=== PATIENT | male | born 1975 | race Caucasian/White ===

== ENCOUNTER → 2019-07-15 | Outpatient (CLI) | payer BC ==
[2019-07-15 15:31] LABS: Basophils % (A) 0 %; Eosinophils % (A) 1 %; HGB 14.5 gm/dL (13.0-17.5); Lymphocytes % (A) 20 %; MCH 30.9 pg (25.0-35.0); MCHC 35.4 g/dL (31.0-37.0); MCV 87.4 fL (80.0-100.0); Mean Platelet Volume 6.9; Monocytes # (A) 0.2 k/uL (0-1.0); Monocytes % (A) 4 %; Neutrophils # (A) 3.7 k/uL (1.3-7.7); Neutrophils % (A) 74 %; Platelet Count 220 k/uL (150-450)
[2019-07-15 18:45] LABS: African American GFR (CKD) 120.8 (60.0-200.0); Albumin 4.5 g/dL (3.80-4.90); Anion Gap 3.4 mmol/L (4.00-12.00); BUN/Creat Ratio 22.22 Ratio (12.00-20.00); Calcium 8.9 mg/dL (8.7-10.3); Carbon Dioxide 28.6 mmol/L (21.6-31.8); Globulin 1.5 g/dL (1.6-3.3); Non-African American GFR(CKD) 104.2 (60.0-200.0); Potassium 4.2 mmol/L (3.5-5.5); Total Bilirubin 0.6 mg/dL (0.3-1.2)
[2019-07-15 18:52] LABS: T4, Free (Free Thyroxine) 1.2 ng/dL (0.80-1.80)
== END | disposition home or self-care (01) ==
LOC: LABPAT 14:15
PROVIDERS: ATTEND Family Medicine
DX: Z01.812 Encounter for preprocedural laboratory examination (principal)
CPT/HCPCS: 36415; 80053; 84439; 84443; 85025; 93005

== ENCOUNTER → 2019-07-30 | Outpatient (CLI) | payer BC ==
--- NOTE | 2019-07-30 10:41 | NM ---
EXAMINATION TYPE: NM stress cardiolite complete DATE OF EXAM: 07/30/2019 COMPARISON: 11/05/2010 HISTORY: Chest pain TECHNIQUE: After the intravenous administration of 10.16 mCi Tc 99m Sestamibi - Rest images obtained 75 minutes post injection. The patient exercised using a BRANDON protocol and 1 minute prior to peak exercise was injected with 26.5 mCi Tc 99m Sestamibi - Stress images obtained 15 minutes post inject ion. FINDINGS: Targeted heart rate was achieved during performance of the study. Review of stress and rest SPECT christi ges demonstrates no reduced uptake involving the inferior wall the myocardium which is seen in both s tress and rest images.. Gated analysis shows reduced wall motion with an estimated left ventricular ejection fraction of 45 %. IMPRESSION: 1. Predominantly fixed defect involving the inferior myocardium. Although a tiny area of adjacent str ess-induced reversible ischemia cannot be entirely excluded no definite sizable area of reversible is chemia identified. Correlate clinically. 2. Ejection fraction of 45%
--- NOTE | 2019-07-30 14:18 | EST ---
EXERCISE STRESS AGE: 43 SEX: M HT: 74" WT: 200 PROTOCOL: Cardiolite Iván Stress Test STAGE: 5 DURATION OF EXERCISE: 14:30 HEART RATE REST: 65 BLOOD PRESSURE REST: 126/74 MAXIMUM HEART RATE ACHIEVED: 150 MAXIMUM BLOOD PRESSURE: 189/74 85% MPHR: 150 100% MPHR: 177 METS: 14.3 INDICATIONS: Preoperative. CLINICAL INFORMATION: A stress Cardiolite study was performed. Patient was exercised for a total period of 14 minutes and 30 seconds, a peak heart rate of 150 was achieved. Maximum blood pressure of 188/74 mmHg was noted. Resting EKG shows normal sinus rhythm with normal MS interval and QRS duration and normal ST-T waves. No ST-segment depression suggestive of ischemia is noted. Patient did not complain of any chest pain during the test. FINAL IMPRESSION: 1. This stress electrocardiogram is not suggestive of ischemia. 2. Patient's exercise tolerance is normal. 3. Patient did not complain of any chest pain during the test. MMODL / IJN: [id number] /
== END | disposition home or self-care (01) ==
LOC: RADNMMAIN 07:52
PROVIDERS: ATTEND Family Medicine
DX: I25.89 Other forms of chronic ischemic heart disease (principal); I51.89 Other ill-defined heart diseases
CPT/HCPCS: 93017; 78452; A9500

== ENCOUNTER 2019-08-01 11:53 | Observation (INO) | payer BC ==
[2019-08-01] MEDS ORDERED: ASPIRIN 81 MG PO STA (12:05)
[2019-08-01] MEDS ORDERED: NITROGLYCERIN OINT 1 INCH/GM PACKET TOPICAL STA (12:05)
--- NOTE | 2019-08-01 12:11 | ED ---
General Adult HPI - General Chief complaint: Chest Pain Stated complaint: Chest pain Time Seen by Provider: 08/01/19 11:57 Source: patient, RN notes reviewed, old records reviewed Mode of arrival: ambulatory Limitations: no limitations - History of Present Illness Initial comments: This is a 43-year-old male who presents emergency Department after experiencing chest pain since Monday when he got news about a stress test that was abnormal. Patient states he also feels as though a little bit more difficult to breathing normal. Patient also states he had some episodes where he felt lightheaded. However he states he had 1 episode after that and that made him more concerned. Patient states currently he has no radiation of the pain. Patient denies any palpitations per patient denies any recent fever chills or cough. Patient denies any swelling legs or calf tenderness. Patient states he exercises daily and has no chest pain or difficulty breathing when he does not. He was at Dr. Schwab's office when the chest pain returned so Dr. Vaughn sentiment emergency department to be admitted and to follow-up with Dr. Grant. Patient states she's feeling little better now but is in the emergency department. Patient states he believes some of this could be due to anxiety because the bad news. - Related Data Home Medications Medication Instructions Recorded Confirmed Gabapentin [Neurontin] 300 mg PO TID 08/01/19 08/01/19 Allergies Allergy/AdvReac Type Severity Reaction Status Date / Time No Known Allergies Allergy Verified 08/01/19 12:43 Review of Systems ROS Statement: Those systems with pertinent positive or pertinent negative responses have been documented in the HPI. ROS Other: All systems not noted in ROS Statement are negative. Past Medical History Past Medical History: Musculoskeletal Disorder Additional Past Medical History / Comment(s): BACK PAIN D/T INJURY History of Any Multi-Drug Resistant Organisms: None Reported Past Surgical History: Orthopedic Surgery Additional Past Surgical History / Comment(s): SURG ON NERVE LT GREAT TOE; LT ELBOW SURG CHILD. Past Anesthesia/Blood Transfusion Reactions: No Reported Reaction Past Psychological History: No Psychological Hx Reported Smoking Status: Never smoker Past Alcohol Use History: None Reported Past Drug Use History: None Reported General Exam - General Exam Comments Initial Comments: GENERAL: Patient is well-developed and well-nourished. Patient is nontoxic and well- hydrated and is in mild distress. ENT: Neck is soft and supple. No significant lymphadenopathy is noted. Oropharynx i s clear. Moist mucous membranes. Neck has full range of motion without eliciting any pain. EYES: The sclera were anicteric and conjunctiva were pink and moist. Extraocular movements were intact and pupils were equal round and reactive to light. Eyelids were unremarkable. PULMONARY: Unlabored respirations. Good breath sounds bilaterally. No audible rales rhonchi or wheezing was noted. CARDIOVASCULAR: There is a regular rate and rhythm without any murmurs gallops or rubs. ABDOMEN: Soft and nontender with normal bowel sounds. No palpable organomegaly was noted. There is no palpable pulsatile mass. SKIN: Skin is clear with no lesions or rashes and otherwise unremarkable. NEUROLOGIC: Patient is alert and oriented x3. Cranial nerves II through XII are grossly intact. Motor and sensory are also intact. Normal speech, volume and content. Symmetrical smile. MUSCULOSKELETAL: Normal extremities with adequate strength and full range of motion. No lower extremity swelling or edema. No calf tenderness. LYMPHATICS: No significant lymphadenopathy is noted PSYCHIATRIC: Patient is mildly anxious Limitations: no limitations Course Vital Signs 08/01/19 08/01/19 08/01/19 11:57 12:13 13:29 Temperature 98 F Pulse Rate 73 70 69 Respiratory 16 20 18 Rate Blood Pressure 134/87 137/90 118/72 O2 Sat by Pulse 99 99 99 Oximetry Medical Decision Making - Medical Decision Making EKG shows normal sinus rhythm at 61 bpm TN interval is 188 QRS 104 Q-T intervals 380 QTC is 390. Patient's EKG shows no ST segment elevation or depression. Chest x-ray shows no acute abnormality. I started the patient on heparin I gave the patient has been Nitropaste. I consulted cardiology they came down to see the patient in the emergency depa rtment. I spoke with Dr. Lora he agreed to admit the patient admitted the patient. - Lab Data Result diagrams: 08/01/19 12:14 08/01/19 12:14 Lab Results 08/01/19 08/01/19 08/01/19 Range/Units 12:14 12:14 12:14 WBC 4.9 (3.8-10.6) k/uL RBC 4.93 (4.30-5.90) m/uL Hgb 15.3 (13.0-17.5) gm/dL Hct 43.1 (39.0-53.0) % MCV 87.5 (80.0-100.0) fL MCH 31.1 (25.0-35.0) pg MCHC 35.5 (31.0-37.0) g/dL RDW 12.1 (11.5-15.5) % Plt Count 207 (150-450) k/uL Neutrophils % 74 % Lymphocytes % 19 % Monocytes % 5 % Eosinophils % 1 % Basophils % 0 % Neutrophils # 3.6 (1.3-7.7) k/uL Lymphocytes # 0.9 L (1.0-4.8) k/uL Monocytes # 0.2 (0-1.0) k/uL Eosinophils # 0.1 (0-0.7) k/uL Basophils # 0.0 (0-0.2) k/uL PT 10.3 (9.0-12.0) sec INR 1.0 (<1.2) APTT 26.7 (22.0-30.0) sec Sodium 138 (137-145) mmol/L Potassium 4.3 (3.5-5.1) mmol/L Chloride 102 (98-107) mmol/L Carbon Dioxide 28 (22-30) mmol/L Anion Gap 8 mmol/L BUN 15 (9-20) mg/dL Creatinine 0.84 (0.66-1.25) mg/dL Est GFR (CKD-EPI)AfAm >90 (>60 ml/min/1.73 sqM) Est GFR (CKD-EPI)NonAf >90 (>60 ml/min/1.73 sqM) Glucose 95 (74-99) mg/dL Calcium 9.7 (8.4-10.2) mg/dL Magnesium 1.9 (1.6-2.3) mg/dL Total Bilirubin 1.0 (0.2-1.3) mg/dL AST 28 (17-59) U/L ALT 25 (4-49) U/L Alkaline Phosphatase 59 (38-126) U/L Troponin I (0.000-0.034) ng/mL Total Protein 7.3 (6.3-8.2) g/dL Albumin 4.6 (3.5-5.0) g/dL 08/01/19 Range/Units 12:14 WBC (3.8-10.6) k/uL RBC (4.30-5.90) m/uL Hgb (13.0-17.5) gm/dL Hct (39.0-53.0) % MCV (80.0-100.0) fL MCH (25.0-35.0) pg MCHC (31.0-37.0) g/dL RDW (11.5-15.5) % Plt Count (150-450) k/uL Neutrophils % % Lymphocytes % % Monocytes % % Eosinophils % % Basophils % % Neutrophils # (1.3-7.7) k/uL Lymphocytes # (1.0-4.8) k/uL Monocytes # (0-1.0) k/uL Eosinophils # (0-0.7) k/uL Basophils # (0-0.2) k/uL PT (9.0-12.0) sec INR (<1.2) APTT (22.0-30.0) sec Sodium (137-145) mmol/L Potassium (3.5-5.1) mmol/L Chloride (98-107) mmol/L Carbon Dioxide (22-30) mmol/L Anion Gap mmol/L BUN (9-20) mg/dL Creatinine (0.66-1.25) mg/dL Est GFR (CKD-EPI)AfAm (>60 ml/min/1.73 sqM) Est GFR (CKD-EPI)NonAf (>60 ml/min/1.73 sqM) Glucose (74-99) mg/dL Calcium (8.4-10.2) mg/dL Magnesium (1.6-2.3) mg/dL Total Bilirubin (0.2-1.3) mg/dL AST (17-59) U/L ALT (4-49) U/L Alkaline Phosphatase (38-126) U/L Troponin I <0.012 (0.000-0.034) ng/mL Total Protein (6.3-8.2) g/dL Albumin (3.5-5.0) g/dL Critical Care Time Critical Care Time: Yes Total Critical Care Time: 35 Disposition Clinical Impression: Unstable angina pectoris Disposition: ADMITTED IP TO THIS HOSP Referrals: Alejandro Lora Jr, DO [Primary Care Provider] - 1-2 days Time of Disposition: 13:57
--- NOTE | 2019-08-01 12:39 | XR ---
EXAMINATION TYPE: XR chest 2V DATE OF EXAM: 08/01/2019 COMPARISON: 04/04/2014 HISTORY: Chest pain and weakness TECHNIQUE: Frontal and lateral views of the chest are obtained. FINDINGS: There is no focal air space opacity, pleural effusion, or pneumothorax seen. Benign right lateral upper lung granuloma is noted. Morphine left upper lobe pulmonary nodule overlying the poste rior fifth rib is unchanged from 2014 and therefore also benign. The cardiac silhouette size is withi n normal limits. The osseous structures are intact. IMPRESSION: No acute cardiopulmonary process.
[2019-08-01 12:45] LABS: ALT 25 U/L (4-49); AST 28 U/L (17-59); African American GFR (CKD) >90 (>60 ml/min/1.73 sqM); Albumin 4.6 g/dL (3.5-5.0); Alkaline Phosphatase 59 U/L (38-126); Anion Gap 8 mmol/L; Blood Urea Nitrogen 15 mg/dL (9-20); Calcium 9.7 mg/dL (8.4-10.2); Carbon Dioxide 28 mmol/L (22-30); Chloride 102 mmol/L (98-107); Glucose 95 mg/dL (74-99); Magnesium 1.9 mg/dL (1.6-2.3); Non-African American GFR(CKD) >90 (>60 ml/min/1.73 sqM); Potassium 4.3 mmol/L (3.5-5.1); Sodium 138 mmol/L (137-145); Total Protein 7.3 g/dL (6.3-8.2)
[2019-08-01 12:48] LABS: Basophils % (A) 0 %; Eosinophils # (A) 0.1 k/uL (0-0.7); Eosinophils % (A) 1 %; HCT 43.1 % (39.0-53.0); HGB 15.3 gm/dL (13.0-17.5); Lymphocytes # (A) 0.9 k/uL (1.0-4.8); Lymphocytes % (A) 19 %; MCH 31.1 pg (25.0-35.0); MCHC 35.5 g/dL (31.0-37.0); MCV 87.5 fL (80.0-100.0); Mean Platelet Volume 6.7; Monocytes # (A) 0.2 k/uL (0-1.0); Monocytes % (A) 5 %; Neutrophils # (A) 3.6 k/uL (1.3-7.7); Neutrophils % (A) 74 %; Platelet Count 207 k/uL (150-450); RBC 4.93 m/uL (4.30-5.90); RDW 12.1 % (11.5-15.5); WBC 4.9 k/uL (3.8-10.6)
[2019-08-01 12:58] LABS: Partial Thromboplastin Time 26.7 sec (22.0-30.0); Prothrombin Time 10.3 sec (9.0-12.0)
[2019-08-01] MEDS ORDERED: HEPARIN SODIUM,PORCINE 5,000 UNIT/ML 1 ML VIAL IV ONE (13:55)
[2019-08-01] MEDS: HEPARIN SOD,PORK IN 0.45% NACL 25,000 UNIT in 0.45% NACL 1 250ML.BAG IV SCH (14:08)
[2019-08-01] MEDS ORDERED: NITROGLYCERIN SL TABS 0.4 MG TAB SUBLINGUAL PRN ×2 (14:28→14:48)
--- NOTE | 2019-08-01 14:34 | P.CRDCN ---
History of Present Illness Consult date: 08/01/19 Requesting physician: Alejandro Lora Jr Consult reason: chest pain Chief complaint: Chest pain History of present illness: This is a 43-year-old gentleman with no prior documented history of hypertension, no diabetes, no hyperlipidemia, he is a nonsmoker, rarely drinks alcohol. He does state that he occasionally drinks energy drinks. He works out, with the cardiovascular workout every morning for approximately 45 minutes, states that he feels very well when he does that. He does take one medication at home which includes Neurontin 300 mg one tablet by mouth 3 times a day which she takes for numbness and tingling in his back. Patient was scheduled to undergo knee surgery, underwent a stress test prior to that which showed evidence of a fixed defect and possible reversible defect, therefore he was set up to follow with Dr. Grant in the office. He had an appointment with him today actually at 1:15. Patient states that since he found out that his stress test was abnormal, he's been having episodes of a discomfort in his chest, and a very small area, states that he also gets episodes where he feels lightheaded. He has no overt chest pressure, he does get tightness intermittently, he feels as though his symptoms may be related to anxiety, seems to happen more when he thinks about his stress test being abnormal. He was in Dr. Lora's office today, and again had some of the symptoms and was referred to come to the emergency room. His EKG on presentation here showed a normal sinus rhythm with no acute changes. Chest x-ray does not show any acute cardiopulmonary process. I pressure 118/70 with a heart rate in the 60s, 99% on room air. White blood cell count 4.9, hemoglobin 15.3, platelet count 207. Sodium 138, potassium 4.3, BUN 15, creatinine 0.8, magnesium 1.9. Troponin 0.012. Past Medical History Past Medical History: Musculoskeletal Disorder Additional Past Medical History / Comment(s): BACK PAIN D/T INJURY History of Any Multi-Drug Resistant Organisms: None Reported Past Surgical History: Orthopedic Surgery Additional Past Surgical History / Comment(s): SURG ON NERVE LT GREAT TOE; LT ELBOW SURG CHILD. Past Anesthesia/Blood Transfusion Reactions: No Reported Reaction Past Psychological History: No Psychological Hx Reported Smoking Status: Never smoker Past Alcohol Use History: None Reported Past Drug Use History: None Reported Medications and Allergies Home Medications Medication Instructions Recorded Confirmed Type Gabapentin [Neurontin] 300 mg PO TID 08/01/19 08/01/19 History Allergies Allergy/AdvReac Type Severity Reaction Status Date / Time No Known Allergies Allergy Verified 08/01/19 12:43 Physical Exam Vitals: Vital Signs Temp Pulse Resp BP Pulse Ox 08/01/19 13:29 69 18 118/72 99 08/01/19 12:13 70 20 137/90 99 08/01/19 11:57 98 F 73 16 134/87 99 Intake and Output 07/31/19 08/01/19 08/01/19 22:59 06:59 14:59 Other: Weight 97.522 kg PHYSICAL EXAMINATION: GENERAL: 43-year-old gentleman in no acute distress at the time of my examination HEENT: Head is atraumatic, normocephalic. Pupils equal, round. Sclera anicteric. Conjunctiva are clear. Mucous membranes of the mouth are moist. Neck is supple. There is no elevated jugular venous pressure. No carotid bruit is heard. HEART EXAMINATION: Heart S1, S2 normal. No murmur or gallop heard. CHEST EXAMINATION: Lungs are clear to auscultation and precussion. No chest wall tenderness is noted on palpation or with deep breathing. ABDOMEN: Soft, nontender. Bowel sounds are heard. No organomegaly noted. EXTREMITIES: 2+ peripheral pulses with no evidence of peripheral edema and no calf tenderness noted. NEUROLOGIC patient is awake, alert and oriented 3 . . Results 08/01/19 12:14 08/01/19 12:14 Cardiac Enzymes 08/01/19 08/01/19 Range/Units 12:14 12:14 AST 28 (17-59) U/L Troponin I <0.012 (0.000-0.034) ng/mL Coagulation 08/01/19 Range/Units 12:14 PT 10.3 (9.0-12.0) sec APTT 26.7 (22.0-30.0) sec CBC 08/01/19 Range/Units 12:14 WBC 4.9 (3.8-10.6) k/uL RBC 4.93 (4.30-5.90) m/uL Hgb 15.3 (13.0-17.5) gm/dL Hct 43.1 (39.0-53.0) % Plt Count 207 (150-450) k/uL Comprehensive Metabolic Panel 08/01/19 Range/Units 12:14 Sodium 138 (137-145) mmol/L Potassium 4.3 (3.5-5.1) mmol/L Chloride 102 (98-107) mmol/L Carbon Dioxide 28 (22-30) mmol/L BUN 15 (9-20) mg/dL Creatinine 0.84 (0.66-1.25) mg/dL Glucose 95 (74-99) mg/dL Calcium 9.7 (8.4-10.2) mg/dL AST 28 (17-59) U/L ALT 25 (4-49) U/L Alkaline Phosphatase 59 (38-126) U/L Total Protein 7.3 (6.3-8.2) g/dL Albumin 4.6 (3.5-5.0) g/dL Current Medications Generic Name Dose Route Start Last Admin Trade Name Freq PRN Reason Stop Dose Admin Heparin Sodium/Sodium Chloride 250 mls @ 10.006 mls/hr 08/01/19 14:00 14:08 25,000 unit/ Sodium Chloride IV 10.26 units/kg/hr .Q24H TAMMY 10.006 mls/hr Administration Protocol 10.26 UNITS/KG/HR Intake and Output 07/31/19 08/01/19 08/01/19 22:59 06:59 14:59 Other: Weight 97.522 kg Patient Weight 08/02/19 06:59 Weight 97.522 kg 08/01/19 12:14 08/01/19 12:14 EKG Interpretations (text) EKG shows a normal sinus rhythm with no acute changes. Assessment and Plan Plan: Assessment and plan #1 chest pain, with some atypical features for acute coronary syndrome. Associated symptoms of lightheadedness. Initial troponin negative. EKG shows normal sinus rhythm with no acute changes. #2 recent stress test revealed predominantly fixed defect involving the inferior myocardium. Tiny area of adjacent stress-induced reversible ischemia cannot be entirely excluded, no definite sizable area of reversible ischemia identified. Ejection fraction 45%. #3 lumbar disc diseas3 #4 upcoming knee surgery Plan We will obtain an echocardiogram with Doppler study. Patient has also been initiated on IV heparin, his symptoms are very atypical in nature, but he is quite concerned about the abnormality found on the stress test. Dr. Flor Chua will come and evaluate the patient and further recommendations will be made. DNP note has been reviewed, I agree with a documented findings and plan of care. Patient was seen and examined.
[2019-08-01] MEDS ORDERED: METOPROLOL TARTRATE 12.5 MG TAB PO STA (14:47)
[2019-08-01] MEDS ORDERED: ASPIRIN 325 MG TAB PO STA (14:48)
[2019-08-01] MEDS ORDERED: ATORVASTATIN 80 MG TAB PO STA (14:48)
[2019-08-01] MEDS ORDERED: SODIUM CHLORIDE 0.9% 1,000 ML in EMPTY BAG 1 BAG IV ONE (14:48)
[2019-08-01] MEDS ORDERED: ALPRAZolam 0.25 MG TAB PO PRN (14:48)
[2019-08-01] MEDS ORDERED: ALPRAZolam 0.5 MG TAB PO PRN (14:48)
[2019-08-01] MEDS ORDERED: NITROGLYCERIN OINT 1 INCH/GM PACKET TOPICAL SCH (18:00)
[2019-08-01] MEDS ORDERED: HEPARIN SODIUM,PORCINE 5,000 UNIT/ML 1 ML VIAL IV PRN (20:39)
[2019-08-01] MEDS ORDERED: ACETAMINOPHEN TAB 325 MG TAB PO STA (21:56)
[2019-08-01] MEDS: GABAPENTIN 300 MG CAP PO SCH (21:59)
--- NOTE | 2019-08-01 22:09 | CONS ---
CONSULTATION Mr. Lewis was seen by me in the emergency room. This is a very active gentleman who works out at high intensity for 45 minutes to 1 hour every day in the form of elliptical and treadmill. He has no symptoms of any chest discomfort with his day-to- day activities. However, he was having some nerve block because of some back discomfort by Dr. Marcos and during one of these procedures apparently he developed some bradycardia was, therefore, advised to have a cardiac workup. His primary care physician, Dr. Alejandro Lora, advised a stress test. This stress test was performed on 07/30/2019 about 2 days ago. Patient walked for 14 minutes 30 seconds. Maximal heart rate was 150 beats per minute. There was no angina. There was no arrhythmia and EKG was unremarkable for ischemia. The nuclear scan raised the possibility of a fixed defect in the inferior wall with a question of reversibility adjacent to it with ejection fraction of 45% with a global decrease in contractility. He is here following a visit to the primary care physician to go over the stress test results. He developed anxiety and became lightheaded, dizzy, felt nauseated. He had [address] Lora sent him to the emergency room. He is asymptomatic, resting, has no symptoms whatsoever. Blood pressure is about 118/70, pulse rate is 66 per minute. Physical exam is normal EKG revealed sinus rhythm with leftward axis. No evidence of any ischemic changes. Initial troponin is normal. I advised the patient and that I will perform coronary angiography to assess and clarify the abnormality seen on the stress test. There is a significant amount of anxiety. I am recommending that we will continue heparin drip, perform additional troponins and proceed with a cardiac cath tomorrow. Based on the findings, I will make further recommendations. The patient understands the rationale, risks, benefits, and options related to cardiac cath and PCI. He and his understand and wish to proceed with the procedure. MMODL / IJN: [id number] /
[2019-08-02 03:46] LABS: Cholesterol 194 mg/dL (<200); HDL Cholesterol 45 mg/dL (40-60); LDL Cholesterol,Calculated 127 mg/dL (0-99); Triglycerides 108 mg/dL (<150)
[2019-08-02] MEDS: HEPARIN SOD,PORK IN 0.45% NACL 25,000 UNIT in 0.45% NACL 1 250ML.BAG IV SCH (05:17)
[2019-08-02] MEDS: GABAPENTIN 300 MG CAP PO SCH (07:08)
[2019-08-02 07:12] VITALS: RESP 18; TEMP 97.8
[2019-08-02] MEDS ORDERED: VERAPAMIL 2.5 MG/ML 2 ML AMP ONE (08:51)
[2019-08-02] MEDS ORDERED: LIDOCAINE 1% INJ 10MG/ML (20 ML MDV) ONE (08:51)
[2019-08-02] MEDS ORDERED: ASPIRIN 81 MG PO SCH (09:00)
[2019-08-02] MEDS ORDERED: ATORVASTATIN 40 MG TAB PO SCH (09:00)
[2019-08-02] MEDS ORDERED: ASPIRIN 325 MG TAB PO SCH (09:00)
[2019-08-02] MEDS ORDERED: HEPARIN SODIUM 1,000 UN/ML (10ML VL) ONE (09:05)
[2019-08-02] MEDS ORDERED: IV FLUID CONTINUATION 600 ML IV ONE (09:22)
[2019-08-02] MEDS ORDERED: MIDAZOLAM 2 MG/2 ML VIAL IVP ONE (09:49)
[2019-08-02] MEDS ORDERED: LIDOCAINE 1% INJ 10MG/ML (20 ML MDV) SQ ONE (09:56)
[2019-08-02] MEDS: VERAPAMIL SYRINGE (5 MG/10 ML) INTRAARTER ONE ×2 (09:59→10:11)
[2019-08-02] MEDS ORDERED: HEPARIN SODIUM 1,000 UN/ML (10ML VL) IV ONE (10:00)
--- NOTE | 2019-08-02 10:00 | ECHOF ---
Referral Reason:Abnormal stress test MEASUREMENTS -------- HEIGHT: 182.9 cm WEIGHT: 97.5 kg BP: RVIDd: 3.2 cm (< 3.3) IVSd: 1.1 cm (0.6 - 1.1) LVIDd: 4.8 cm (3.9 - 5.3) LVPWd: 1.3 cm (0.6 - 1.1) IVSs: 1.3 cm LVIDs: 3.9 cm LVPWs: 1.6 cm LA Diam: 4.1 cm (2.7 - 3.8) LAESV Index (A-L): 31.98 ml/m Ao Diam: 3.7 cm (2.0 - 3.7) AV Cusp: 2.8 cm (1.5 - 2.6) LA Diam: 3.5 cm (2.7 - 3.8) MV EXCURSION: 21.910 mm (> 18.000) MV EF SLOPE: 130 mm/s (70 - 150) EPSS: 0.5 cm MV E Kaleb: 0.63 m/s MV DecT: 158 ms MV A Kaleb: 0.40 m/s MV E/A Ratio: 1.60 RAP: 5.00 mmHg RVSP: 19.09 mmHg FINDINGS -------- Sinus rhythm. This was a technically good study. The left ventricular size is normal. Left ventricular wall thickness is normal. Overall left vent ricular systolic function is low-normal with, an EF between 50 - 55 %. The diastolic filling patter n is normal for the age of the patient 5.22. The right ventricle is normal in size. The left atrium is mildly dilated. LA is midly dilated 29-33ml/m2. The right atrial size is normal. The aortic valve is trileaflet, and appears structurally normal. No aortic stenosis or regurgitation. Mild mitral regurgitation is present. Mild tricuspid regurgitation present. Right ventricular systolic pressure is normal at < 35 mmHg. There is no evidence of pulmonary hypertension. There is no pulmonic regurgitation present. The aortic root size is normal. There is no pericardial effusion. CONCLUSIONS -------- 1. Sinus rhythm. 2. This was a technically good study. 3. The left ventricular size is normal. 4. Left ventricular wall thickness is normal. 5. Overall left ventricular systolic function is low-normal with, an EF between 50 - 55 %. 6. The diastolic filling pattern is normal for the age of the patient 5.22 7. The right ventricle is normal in size. 8. The left atrium is mildly dilated. 9. LA is midly dilated 29-33ml/m2. 10. The right atrial size is normal. 11. The aortic valve is trileaflet, and appears structurally normal. No aortic stenosis or regurgitat ion. 12. Mild mitral regurgitation is present. 13. Mild tricuspid regurgitation present. 14. Right ventricular systolic pressure is normal at < 35 mmHg. 15. There is no evidence of pulmonary hypertension. 16. There is no pulmonic regurgitation present. 17. The aortic root size is normal. 18. There is no pericardial effusion. HOOK TENDER: Chelsea Muller RDCS
[2019-08-02] MEDS ORDERED: IOPAMIDOL-370 100ML BTL INJ ONE (10:19)
[2019-08-02] MEDS ORDERED: SODIUM CHLORIDE 0.9% 1,000 ML IV SCH (10:30)
--- NOTE | 2019-08-02 11:17 | CC ---
CARDIAC CATHETERIZATION REPORT PROCEDURE: Left heart catheterization and coronary angiography. PERFORMED BY: Dr. Lynda Chua. ANESTHESIA: Moderate conscious sedation time was 21 minutes. CLINICAL INFORMATION: Mr. Eloy Lewis is a 43-year-old gentleman who came in yesterday with episode of chest pain, had a stress test on 30 of July, which revealed a fixed inferior wall defect with partial reversibility and suggestive of ischemia as well. He came in with chest pain, lightheadedness, dizziness, had negative troponins, but because of abnormal stress test and ongoing episodes of chest pain requiring a visit to the emergency room from his PCPs office, I recommended coronary angiography after explaining to him and his the rationale, risks, benefits, and options. PROCEDURE NOTE: Under local anesthesia and strict aseptic precautions, a 6-Tajik introducer was placed in the right radial artery. Using a JL3.5 and JR4.0 catheters I performed coronary angiography and the same right catheter was used to check LV pressures. LV gram was not performed. Ejection fraction by echo was in the range of 50% to 55%. The patient tolerated the procedure well. No complications. TR band was applied and hemostasis secured. Saturation of the fingers of the right hand was 97%. CARDIAC CATHETERIZATION FINDINGS: The left ventricle end-diastolic pressure was 8 mmHg. No gradient across aortic valve. CORONARY ANGIOGRAPHY FINDINGS: RIGHT CORONARY ARTERY: Large dominant vessel. No significant disease. Distally, it bifurcates into PDA and PLV and supplies a sizable amount of myocardium. No significant disease in the dominant RCA. LEFT MAIN CORONARY ARTERY: Short patent disease-free vessel that bifurcates into LAD and circumflex. LEFT ANTERIOR DESCENDING CORONARY ARTERY: Good caliber vessel extends along the anterior wall, gives off septal and diagonal branches. No significant disease. It runs all the way to the apex supplying a sizable amount of myocardium. The LAD is a disease- free vessel which gives off septal and diagonal branches proximally and has minor irregularities. LEFT POSTERIOR CIRCUMFLEX CORONARY ARTERY: Technically nondominant vessel gives off a single obtuse marginal that runs laterally and then there is an AV groove branch. There are minor irregularities. No significant disease is noted in the circumflex system. There is a groove branch that comes off after the obtuse marginal has some eccentric area of narrowing of about maybe 30% to 35% in some views. No significant disease is noted in the circumflex system. Left ventriculogram was not performed. FINAL IMPRESSION: This patient has a right dominant system. Normal filling pressures. No gradient across aortic valve and no evidence of any significant disease in the RCA which is dominant of the left system. RECOMMENDATIONS: Findings were discussed with the patient and . He is advised risk factor modification and will be discharged later on today and I will see him on Monday in the office. Advised no specific medications at this time. The patient currently exercises regularly and I am not initiating any specific medications other than advised risk factor modification. MMODL / IJN: [id number] /
--- NOTE | 2019-08-02 13:58 | P.HPIM ---
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 He was scheduled for knee surgery with Dr. Vincent in the next few days. He was in the office and had a standard EKG and laboratory studies. He was found to Have a Left Bundle Branch Block on EKG. As of this abnormality, a 2-D echo and Cardiolite stress test were ordered. EKG portion was normal, however the Cardiolite portion showed a fixed defect involving the inferior myocardium and the could not exclude a tiny area of adjacent stress-induced reversible ischemia. His ejection fraction is currently 45%. He was then referred to cardiology, was having chest pains was in the office again on August 01. He denied any shortness of breath, nausea vomiting. At that point he was sent to the emergency room and admitted. Serial troponins were negative. He'll be scheduled for cardiac catheterization with cardiology soon. Review of Systems All systems: negative Past Medical History Past Medical History: Musculoskeletal Disorder Additional Past Medical History / Comment(s): BACK PAIN D/T INJURY History of Any Multi-Drug Resistant Organisms: None Reported Past Surgical History: Back Surgery, Orthopedic Surgery Additional Past Surgical History / Comment(s): SURG ON NERVE LT GREAT TOE; LT ELBOW SURG CHILD. Back injections Past Anesthesia/Blood Transfusion Reactions: No Reported Reaction Past Psychological History: No Psychological Hx Reported Smoking Status: Never smoker Past Alcohol Use History: None Reported Past Drug Use History: None Reported Medications and Allergies Home Medications Medication Instructions Recorded Confirmed Type Gabapentin [Neurontin] 300 mg PO TID 08/01/19 08/01/19 History Allergies Allergy/AdvReac Type Severity Reaction Status Date / Time No Known Allergies Allergy Verified 08/01/19 12:43 Physical Exam Vitals: Vital Signs Temp Pulse Pulse Pulse Pulse Resp BP 08/02/19 12:20 68 08/02/19 11:50 64 08/02/19 11:20 70 08/02/19 11:05 60 08/02/19 10:50 58 L 08/02/19 10:35 52 L 08/02/19 07:12 97.8 F 50 L 18 08/02/19 06:12 98.0 F 49 L 16 08/02/19 04:00 98.0 F 49 L 16 08/01/19 23:36 97.7 F 72 18 01/09/20 19:10 97.6 F 60 08/01/19 16:17 08/01/19 15:31 97.9 F 62 18 08/01/19 14:51 69 18 116/76 BP Pulse Ox 08/02/19 12:20 110/54 08/02/19 11:50 114/55 08/02/19 11:20 121/67 08/02/19 11:05 124/68 08/02/19 10:50 120/67 08/02/19 10:35 114/67 98 08/02/19 07:12 109/61 98 08/02/19 06:12 106/57 99 08/02/19 04:00 106/57 99 08/01/19 23:36 106/57 100 08/01/19 19:10 124/80 99 08/01/19 16:17 98 08/01/19 15:31 121/75 98 08/01/19 14:51 Intake and Output 08/01/19 08/02/19 08/02/19 22:59 06:59 14:59 Intake Total 366.373 101.825 400 Balance 366.373 101.825 400 Intake: IV 400 Intake, IV Titration 66.373 101.825 Amount Heparin Sod,Pork in 0.45% 66.373 101.825 NaCl 25,000 unit In 0.45 % NaCl 1 250ml.bag @ 10. 26 UNITS/KG/HR 10.006 mls /hr IV .Q24H [facility] Rx#: [id number] Oral 300 Other: Voiding Method Toilet Toilet # Voids 1 2 Weight 97.522 kg GENERAL: Well-appearing, well-nourished and in no acute distress. HEAD: Atraumatic, normocephalic. EYES: Pupils equal round and reactive to light, extraocular movements intact, sclera anicteric, conjunctiva are normal. ENT:nares patent, oropharynx clear without exudates. Moist mucous membranes. NECK: Normal range of motion, supple without lymphadenopathy or JVD, no thyromegaly LUNGS: Breath sounds clear to auscultation bilaterally and equal. No wheezes rales or rhonchi. HEART: Regular rate and rhythm without murmurs, rubs or gallops.S1S2 Normal ABDOMEN: Soft, nontender, normoactive bowel sounds. No guarding, no rebound. No masses appreciated. EXTREMITIES: Normal range of motion, no pitting or edema. No clubbing or cyanosis. NEUROLOGICAL: Cranial nerves II through XII grossly intact. Normal speech, normal gait. PSYCH: Normal mood, normal affect. SKIN: Warm, Dry, normal turgor, no rashes or lesions noted. Results CBC & Chem 7: 08/01/19 12:14 08/01/19 12:14 Labs: Abnormal Lab Results - Last 24 Hours (Table) 08/01/19 08/02/19 08/02/19 Range/Units 19:39 03:20 05:19 APTT 42.2 H 51.3 H (22.0-30.0) sec LDL Cholesterol, Calc 127 H (0-99) mg/dL Thrombosis Risk Factor Assmnt - DVT/VTE Prophylaxis DVT/VTE Prophylaxis: Pharmacologic Prophylaxis ordered - Choose All That Apply Any of the Below Risk Factors Present?: Yes Each Factor Represents 1 point: Age 41-60 years Other Risk Factors: No Thrombosis Risk Factor Assessment Total Risk Factor Score: 1 Thrombosis Risk Factor Assessment Level: Low Risk Assessment and Plan (1) Chest pain Current Visit: Yes Status: Acute Code(s): R07.9 - CHEST PAIN, UNSPECIFIED SNOMED Code(s): 72235672 (2) Anxiety Current Visit: Yes Status: Acute Code(s): F41.9 - ANXIETY DISORDER, UNSPECIFIED SNOMED Code(s): 84109447 (3) Unstable angina pectoris Current Visit: Yes Status: Acute Code(s): I20.0 - UNSTABLE ANGINA SNOMED Code(s): 9506317 Plan: We'll await cardiology consultation possible cardiac catheterization soon. Her main atorvastatin, aspirin, and heparin until they see him.
[2019-08-02 14:08] VITALS: PULSE 58
--- NOTE | 2019-08-02 14:37 | P.DS ---
Providers Date of admission: 08/01/19 14:28 Expected date of discharge: 08/02/19 Attending physician: Alejandro Lora Consults: 08/01/19 14:28 Consult Physician Urgent Consulting Provider: [facility] Consult Reason/Comments: Unstable angina Do you want consulting provider notified?: Yes Primary care physician: [facility] Course: Final Diagnoses: (1) Chest pain, status post cardiac cath reporting right dominant system, no evidence of significant disease Current Visit: Yes Status: Acute Code(s): R07.9 - CHEST PAIN, UNSPECIFIED SNOMED Code(s): 36646267 (2) Anxiety Current Visit: Yes Status: Acute Code(s): F41.9 - ANXIETY DISORDER, UNSPECIFIED SNOMED Code(s): 05139097 (3) Unstable angina pectoris Current Visit: Yes Status: Acute Code(s): I20.0 - UNSTABLE ANGINA SNOMED Code(s): 5390098 Hospital course: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 He was scheduled for knee surgery with Dr. Vincent in the next few days. He was in the office and had a standard EKG and laboratory studies. He was found to Have a Left Bundle Branch Block on EKG. As of this abnormality, a 2-D echo and Cardiolite stress test were ordered. EKG portion was normal, however the Cardiolite portion showed a fixed defect involving the inferior myocardium and the could not exclude a tiny area of adjacent stress-induced reversible ischemia. His ejection fraction is currently 45%. He was then referred to cardiology, was having chest pains was in the office again on August 01. He denied any shortness of breath, nausea vomiting. At that point he was sent to the emergency room and admitted. Serial troponins were negative. He'll be scheduled for cardiac catheterization with cardiology soon. Underwent cardiac catheterization reporting patient has a right dominant system, normal filling pressures, no gradient across aortic valve ,no evidence of any significant disease in the RCA, advising no specific medications at this time, only risk factor modifications. Significant clinical improvement. Patient has been cleared by cardiology for discharge. Patient is being discharged home in stable condition with guarded prognosis. The impression and plan of care has been dictated as directed. : I performed a history and examination of this patient, discussed the same with the dictator. I agree with the dictator's note ,documented as a scribe. Any additional findings or plans will be noted. Patient Condition at Discharge: Stable Plan - Discharge Summary Discharge Rx Participant: No New Discharge Prescriptions: No Action Gabapentin [Neurontin] 300 mg PO TID Discharge Medication List Gabapentin [Neurontin] 300 mg PO TID 08/01/19 [History] Follow up Appointment(s)/Referral(s): Erasmo Chua MD [STAFF PHYSICIAN] - 08/05/19 3:45 pm (make appt for late in the day on Monday.) Alejandro Lora Jr, DO [Primary Care Provider] - 3 Days Activity/Diet/Wound Care/Special Instructions: Per cardiology risk factor modifications only, no new meds
[2019-08-02 14:40] VITALS: BP 119/58
== END 2019-08-02 16:49 | disposition home or self-care (01) ==
LOC: EC 11:53 → 1SOBS 14:28
PROVIDERS: ADMIT Family Medicine; ATTEND Family Medicine
DX: I20.0 Unstable angina (principal); F41.9 Anxiety disorder, unspecified; I44.7 Left bundle-branch block, unspecified; R42 Dizziness and giddiness; R94.39 Abnormal result of other cardiovascular function study; R20.2 Paresthesia of skin; R20.0 Anesthesia of skin; M51.9 Unspecified thoracic, thoracolumbar and lumbosacral intervertebral disc disorder; I08.1 Rheumatic disorders of both mitral and tricuspid valves; Z79.899 Other long term (current) drug therapy; Z87.828 Personal history of other (healed) physical injury and trauma; Z98.890 Other specified postprocedural states
CPT/HCPCS: 96366 ×2; 93005 ×2; 96361; 96376 ×2; 96365; 99291; 36415; 93306; 93458; 80061; 80053; 83735; 84484 ×2; 85025; 85610; 85730 ×2; 71046; G0378 ×2; C1769; C1894; J2250; J1644 ×4; J2001; Q9967

== ENCOUNTER → 2021-12-15 | Outpatient (CLI) | payer BC ==
[2021-12-15 10:49] LABS: Partial Thromboplastin Time 24.7 sec (22.0-30.0); Prothrombin Time 10.5 sec (9.0-12.0)
--- NOTE | 2021-12-15 11:59 | XR ---
EXAMINATION TYPE: XR chest 2V DATE OF EXAM: 12/15/2021 COMPARISON: Chest x-ray 08/01/2019 HISTORY: M51.26, M51.36, M54.16, M62.830 Muscle spasm of back TECHNIQUE: Frontal and lateral views of the chest are obtained. FINDINGS: There is no focal air space opacity, pleural effusion, or pneumothorax seen. The cardiac silhouette size is within normal limits. Probable stable calcified granuloma superolaterally in the r ight chest is again noted. The osseous structures are intact. IMPRESSION: No acute cardiopulmonary process.
[2021-12-15 14:44] LABS: African American GFR (CKD) 99.3 (60.0-200.0); Albumin 4.6 g/dL (3.8-4.9); Albumin/Globulin Ratio 2.39 (1.60-3.17); BUN/Creat Ratio 22.5 Ratio (12.00-20.00); Blood Urea Nitrogen 23.4 mg/dL (9.0-27.0); Calcium 9.3 mg/dL (8.7-10.3); Carbon Dioxide 29.2 mmol/L (20.0-27.5); Globulin 1.9 g/dL (1.6-3.3); Non-African American GFR(CKD) 85.7 (60.0-200.0); Potassium 4.6 mmol/L (3.5-5.5); Total Bilirubin 0.3 mg/dL (0.30-1.20); Total Protein 6.5 g/dL (6.2-8.2)
[2021-12-15 14:59] LABS: HCT 43.1 % (39.6-50.0); HGB 14.8 g/dL (13.0-17.0); MCH 30.6 pg (27.0-32.0); MCHC 34.3 g/dL (32.0-37.0); Mean Platelet Volume 9.7 fL (9.5-12.2); NRBC Per 100 WBC 0 /100 WBCS (0.0-0.0); Platelet Count 223 X 10*3/uL (140-440); RBC 4.84 X 10*6/uL (4.40-5.60); RDW 12.5 % (11.5-14.5); WBC 6.08 X 10*3/uL (4.50-10.00)
[2021-12-15 15:53] LABS: Appearance,Urine Clear (Clear); Bilirubin,Urine Negative (Negative); Blood,Urine Negative (Negative); Color,Urine Yellow (Yellow); Ketones,Urine Trace mg/dL (Negative); Nitrite,Urine Negative (Negative); Specific Gravity,Urine 1.027 (1.001-1.030); Urobilinogen,Urine 0.2 (0.2,1.0)
== END | disposition home or self-care (01) ==
LOC: LABWHC1 09:41
PROVIDERS: ATTEND Orthopaedic Surgery Orthopaedic Surgery of the Spine
DX: M51.26 Other intervertebral disc displacement, lumbar region (principal); M51.36 Other intervertebral disc degeneration, lumbar region; M54.16 Radiculopathy, lumbar region; M62.830 Muscle spasm of back
CPT/HCPCS: 36415; 71046; 80053; 81003; 85027; 85610; 85730; 93005

== ENCOUNTER → 2023-06-22 | Outpatient (CLI) | payer BC ==
--- NOTE | 2023-06-22 12:40 | P.PN ---
Subjective Progress Note Date: 06/22/23 This is a 47 years old male with a chronic history of severe low back pain, radiation to the left lower extremity, patient had lumbar venectomy surgery done several years ago, and he did fairly well after the surgery, over the last 2 years he started complaining of severe low back pain with radiation to the left lower extremity associated with some numbness and tingling sensation in the left lower extremity, he denies any motor or sensory deficit he denies any fever or night sweats he denies any change in the bowel movement or urination, the pain is constant and aggravated with activity, he tried conservative treatment without any significant relief of his symptoms, he is using NSAIDs,and norco ,wi th some benefit, he denies any side effects of the medication Objective - Exam Physical Examinations : -Constitutiona : Cooperative , not in acute distress . -HEENT : nech : supple , no Lymphadenopathy , normal thyroid size . : eyes : no ptosis , no icterus, no photophobia . - neurologic : Cranial nerve II to XII intact , no focal neurological deffecit . -psychatric : alert , oriented X 3 , appropriate affect , intact judgment and insight . -Lymphatic : no Lymphadenopathy . - musculoskeltal : Lumber spine moter stegnth lower extremities ,thigh and legs 5/5 Right side , 5/5 Left side deep tendon reflexes : normal Knee Jerk , normal ankle Jerk lumber facet Loading Test =positive Right , positive Left Range of motion of the lumbar spine Flexion 30 degrees, extension 10 degrees strait leg raising test = negative bilaterally Fabere test= negative bilaterally. tenderness over the Sacroiliac joint on the Left sides Gaenslen test= positive right ,and positive left Sacroiliac compression test= positive left side. MRI of the lumbar spine L3 4 bulging disc disease and moderate facet degeneration L4 5 left laminectomy Swartz disc bulging and that is left subarticular disc protrusion impingement of the left L5 nerve root, at L5-S1 there is neuroforaminal narrowing Assessment and Plan Plan: Assessment and plan= chronic low back pain secondary to= 1-lumbar radiculopathy 2-lumbar foraminal stenosis . 3-lumbar spondylosis with lumbar facet arthropathy 4-lumbar degenerative disc disease Patient will be good candidate to have transforaminal epidural steroid injection left side at L4 5, and L5-S1 under fluoroscopy guidance. Procedure risk and benefits and alternatives discussed with the patient and he agreed with proceeding Time with Patient: Less than 30
[2023-06-22 13:48] VITALS: BP 123/83; PULSE 80; RESP 16; TEMP 98.2
== END ==
LOC: PNWHC3 11:18
PROVIDERS: ATTEND Anesthesiology
DX: G89.29 Other chronic pain (principal); M47.816 Spondylosis without myelopathy or radiculopathy, lumbar region; M54.50 Low back pain, unspecified; M48.061 Spinal stenosis, lumbar region without neurogenic claudication; M47.26 Other spondylosis with radiculopathy, lumbar region; M51.16 Intervertebral disc disorders with radiculopathy, lumbar region; M51.37 Other intervertebral disc degeneration, lumbosacral region; Z92.3 Personal history of irradiation
CPT/HCPCS: 99211

== ENCOUNTER 2023-07-06 06:48 | Day surgery (SDC) | payer BC ==
[2023-07-06] MEDS ORDERED: LACTATED RINGERS 1,000 ML IV SCH (07:15)
[2023-07-06 07:30] VITALS: RESP 16; TEMP 98.4
[2023-07-06] MEDS ORDERED: IOPAMIDOL M200 10 ML VIAL ONE (07:59)
[2023-07-06] MEDS ORDERED: methylPREDNISolone ACETATE 80 MG/ML 1 ML VIAL ONE (07:59)
--- NOTE | 2023-07-06 08:09 | P.PCN ---
Date of Procedure: 07/06/23 Procedure(s) Performed: PREOPERATIVE DIAGNOSIS: 1-Lumbar radiculopathy . 2-lumbar degenerative disc disease. 3-lumbar spondylosis with lumbar facet arthropathy without myelopathy POSTOPERATIVE DIAGNOSIS: 1-lumbar radiculopathy. 2-lumbar degenerative disc disease. 3-lumbar spondylosis with facet arthropathy without myelopathy PROCEDURE 1. Transforaminal epidural steroid injection under fluoroscopic guidance at left L4-5 , and L5-S1 leveles . (Fluoroscopy images stored on file in the radiology Department ) 2. Lumbar epidurogram . ANESTHESIA: Local with 1% lidocaine 3 ml. EBL: Minimal PROCEDURE INDICATION: The patient with low back pain and radiculopathy symptoms unresponsive to conservative treatment. PROCEDURE DESCRIPTION / TECHNIQUE: The patient was seen and identified in the preoperative area. Risks, benefits, complications, and alternatives were discussed with the patient. The patient agreed to proceed with the procedure and signed the consent. IV was started, and vital signs were stable. Patient was taken to the OR and time out was completed. The patient was placed in the prone position on procedure table and a pillow was placed under the abdomen to reduce lumbar lordosis. The lumbosacral area was prepped and draped in the usual sterile fashion. Critical pause was taken. Vital signs were closely monitored during the procedure. Using oblique fluoroscopy, the chin of the ``John Paul dog at left L4-5 level was identified, and the skin and deeper tissues just below was localized with 1% lidocaine. Subsequently, a 22-gauge 3.5-inch spinal needle was advanced under a tunneled view fluoroscopic guidance just underneath the chin of the ``John Paul dog at the left L4-5 Under lateral fluoroscopy, the needle was then advanced to the posterior border of the interforaminal space. After negative aspiration of CSF and blood and with no paresthesias, 1 mL Isovue 200 contrast dye was injected excellent epidurogram and outlining of the nerve root Subsequently, 3 mL of block solution containing 40 mg Depo-Medrol and 2 mL of 0.9% normal saline PF was injected. Needle was removed and the same procedure was repeated at the left L5-S1 level . At the end of the procedure, skin was cleansed, and bandages were applied. COMPLICATIONS:none DISPOSITION / PLANS: The patient was placed in a supine position and transferred to the recovery area in a stable condition for observation. There was no evidence of lower extremity motor or sensory deficit after the procedure. Patient was discharged from the recovery room after meeting discharge criteria. Home discharge instructions were given to the patient by the staff. The patient was reexamined prior to discharge.
[2023-07-06 08:21] VITALS: BP 114/73; PULSE 56
--- NOTE | 2023-07-06 08:23 | FL ---
EXAMINATION TYPE: FL guided pain mgmt statistic DATE OF EXAM: 07/06/2023 HISTORY: Fluoroscopy time Total dose area product (DAP) in uGy*m?, mGy*cm? (or similar): 0.31346 IMPRESSION: 1. Fluoroscopy time.
== END 2023-07-06 08:26 | disposition home or self-care (01) ==
LOC: ORPAIN 06:48
PROVIDERS: ATTEND Specialist
DX: M51.16 Intervertebral disc disorders with radiculopathy, lumbar region (principal); M47.26 Other spondylosis with radiculopathy, lumbar region; Z79.1 Long term (current) use of non-steroidal anti-inflammatories (NSAID)
CPT/HCPCS: 64483; 64484; J1040; Q9966